=== PATIENT | male | born 1965 | race Caucasian/White ===

== ENCOUNTER 2022-02-14 01:14 | Outpatient (CLI) | payer BC, SELFPAY ==
[2022-02-14] MEDS: Methacholine 100 MG VIAL IH (17:29)
[2022-02-14] MEDS: Albuterol HFA 18 GM 200 PUFF INH IH (17:29)
[2022-02-14] MEDS: Inhaler, Assist Device 1 EACH MC (17:29)
--- NOTE | 2022-02-18 12:28 | W.PFT ---
Date of service: 02/14/22 Time of Service: 15:07 Pulmonary Function Test Result Requesting Provider Rubi Indications: Chronic cough Interpretation Spirometry: There was a 17% decrease in FEV1% with administration of 16mg/mL methacholine. Note: Negative methacholine challenge test Clinical Correlation therefore is recommended.
== END 2022-02-14 01:15 | disposition home or self-care (01) ==
LOC: RT 01:15
PROVIDERS: PCP Physician Assistant Medical; Visit Provider Student in an Organized Health Care Education/Training Program
DX: R05.3 Chronic cough (principal)
CPT/HCPCS: 94060; 94070; J7674

== ENCOUNTER 2022-02-17 08:04 | Day surgery (SDC) | payer BC, SELFPAY ==
[2022-02-17 08:07] VITALS: BP 132/86; PULSE 74; RESP 18; TEMP 36.5; O2SAT 98
[2022-02-17] MEDS: Tropicam./Phenyleph. (1/2.5%) 5 ML BTL OD ×3 (08:23→08:34)
[2022-02-17 08:30] VITALS: BP 132/86; PULSE 74; RESP 18; TEMP 36.5; O2SAT 98
--- NOTE | 2022-02-17 08:43 | W.ANESPRE ---
General Info Date of Service Date Performed: 02/17/22 Height: 6 ft Weight: 93.1 kg Body Mass Index (BMI): 27.8 Surgical Procedure: Operation Date: 02/17/22 10:40 Proposed Procedure Side Surgeon p Cataract Extraction with IOL Implant Right Keshav Fuller MD Meds Allergies and Home Medications Allergies Allergy/AdvReac Type Severity Reaction Status Date / Time No Known Allergies Allergy Verified 02/17/22 08:18 Home Medication Medication Instructions Recorded acetaminophen 500 mg tablet 500 mg PO Q4H PRN 10/22/21 prednisone 20 mg tablet 40 mg PO DAILY #14 tabs 02/11/22 Current Visit Medications: Current Medications Generic Name Dose Route Start Last Admin Trade Name Freq PRN Reason Stop Dose Admin Acetaminophen 1,000 mg 02/17/22 06:00 Acetaminophen 500 Mg Tab PO Q4H PRN PRN Miscellaneous Medication 0 ml 02/17/22 06:00 Prednisolone 1%, Moxifloxacin 0.5%, Nepafenac 0.1% 5ml Btl OD DIRECTED [facility] Miscellaneous Medication 0 ml 02/17/22 06:00 02/17/22 08:34 Tropicam./Phenyleph. 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 Neck pain M54.2 Prepatellar bursitis M70.40 Palpitations R00.2 Snoring R06.83 Chronic cough R05.3 Chest pain R07.9 Elevated blood pressure reading without diagnosis of hypertension R03.0 History of appendectomy Z90.49 Nuclear sclerotic cataract of right eye H25.11 Medical History Medical History Anxiety Aortic root dilatation Surgical History Surgical History H/O atrial septal defect repair History of appendectomy Tobacco Smoking/Tobacco Use Status: Never Second hand exposure: Yes (Rarely) Alcohol Alcohol Intake: current Alcohol intake frequency: a few times a week Substance Use Substance use: Never Vital Signs and Lab Results Vital Signs Most Recent Vital Signs in EMR: Most Recent Vital Signs Temp Pulse Resp BP Pulse Ox 36.5 C 74 18 132/86 98 02/17/22 08:30 02/17/22 08:30 02/17/22 08:30 02/17/22 08:30 02/17/22 08:30 Lab Results Blood Type / Crossmatch: No Data to Display Complete Blood Count: No Data to Display Complete Metabolic Panel: No Data to Display Liver Function Panel: No Data to Display Coagulation Panel: No Data to Display Cardiac Panel: No Data to Display Arterial Blood Gas: No Data to Display Venous Blood Gas: No Data to Display Pancreas Panel: No Data to Display Thyroid Panel: No Data to Display Infectious Disease: No Data to Display Blood Cultures: No Data to Display Toxicology Panel: No Data to Display Imaging and Studies Imaging and Studies Study information below may be from another EMR and interpreted by another provider. Please see original notes in EMR for more complete details. Pulmonary Function Summary: Recent pft normal Anesthesia Assessment and Plan Anesthesia History Personal History: Delayed Emergence Family History: No Family History of Anesthesia Complications Exercise Tolerance Exercise Tolerance: Metabolic Equivalents>4 Pertinent Negatives Pertinent Negatives: No Symptoms of GERD Cardiac & Pulmonary Exam Cardiac Exam: Normal S1/S2 Heart Sounds Pulmonary Exam: Clear Bilateral Breath Sounds Implantable Cardiac Device Does patient have a Pacemaker or an ICD?: No Airway Exam Known Difficult Airway: No Mallampati Class: 3 Mouth Opening: Normal (> 3cm) Thyromental Distance: Greater than 3 cm Neck Range of Motion: Full ROM Neck Circumference: Normal Teeth Condition: Normal Dentition ASA Classification ASA Score: ASA 2 Emergency Case?: No NPO Status NPO Status: NPO Clears >2 hours, Solids >8 hours Anesthesia Plan Resuscitation Status: Full Code Anesthesia Technique: MAC Anesthesia Airway Planned: Natural Airway Monitors Used: Standard Monitors Preoperative Comments:: Jesika lama
[2022-02-17 08:45] VITALS: BMI 27.8
[2022-02-17] MEDS: Balanced Salt Soln.-PLUS 500 ML BAG (10:11)
[2022-02-17] MEDS: Tetracaine 0.5% 4 ML BTL OD (10:11)
[2022-02-17] MEDS: Duovisc Viscoelastic System EACH 1 EACH (10:14)
[2022-02-17] MEDS: Trypan Blue 0.06% 0.5 ML SYR (10:14)
[2022-02-17] MEDS: Triamcinolone 40 MG/ML VIAL (10:14)
[2022-02-17] MEDS: Povidone-Iodine Ophth 30 ML BTL (10:15)
[2022-02-17] MEDS: Lidocaine 2% Jelly 6 ML SYR (10:15)
[2022-02-17 10:53] VITALS: BP 117/90; PULSE 71; RESP 18; TEMP 36.8; O2SAT 96
--- NOTE | 2022-02-17 10:54 | W.PM.DSUDISC ---
Discharge Plan Disposition Patient Disposition: HOME Condition: Good Discharge Details Attending Provider: Keshav Fuller Primary Care Provider: Aj Wallace Home Meds and New Rx's Prescriptions: No Action prednisone 20 mg tablet 40 mg PO DAILY Qty: 14 0RF Rx Instructions: For cough after cataract surgery acetaminophen 500 mg tablet 500 mg PO Q4H PRN Discharge Instructions Stand Alone Forms: Post-op Topical Cataract, Amanda Fuller (DSU) Discharge Orders Discharge Orders: Discharge Order (Routine); Ordered 02/17/22 Ordered By: Keshav Fuller DS: Diagnosis Discharge Diagnosis (1) History of vitrectomy: Status: Chronic (2) Nuclear sclerotic cataract of right eye: Status: Chronic (3) History of detached retina repair: Status: Chronic
--- NOTE | 2022-02-17 10:57 | W.PM.OP ---
Date of service: 02/17/22 Time of Service: 10:57 Operative Note Operative Note DATE OF PROCEDURE: 02/17/22 PRE-OP DIAGNOSIS: Nuclear cataract, right eye History of retinal detachment, right eye, status post pars plana vitrectomy and scleral buckling procedure POST-OP DIAGNOSIS: same PROCEDURE: Cataract extraction using phacoemulsification with intraocular lens implantation, right eye, using capsular staining with Vision Blue Implantation of capsular tension ring SURGEON: Keshav Fuller ANESTHESIA TYPE: Local By Surgeon and MAC Refer to Anesthesia Record PATHOLOGY: none sent COMPLICATIONS: None Patient was transported to: same day Patient's condition: stable Implants: Travis and Travis / [employer] Tecnis [id number] Morcher Type 15B capsular tension ring Indications: Progressive visual loss due to cataract, right eye Procedure Description: CATARACT SURGERY OPERATIVE REPORT PREOPERATIVE DIAGNOSIS: 1. Nuclear cataract, right eye 2. Poor red reflex secondary to #1 3. History of retinal detachment, right eye status post pars plana vitrectomy and scleral buckling procedure 4. High myopia POSTOPERATIVE DIAGNOSIS: Same OPERATION: 1. Cataract extraction using phacoemulsification with posterior chamber intraocular lens implant, right eye. 2. Capsular staining with Vision Blue 3. Implantation of Morcher Type 15B capsular tension ring IOL: IOL Stained Glass Window Designer/Model: Travis & Travis / TRUONG [id number] IOL Power: + 14.0 diopters IOL Serial Number: [id number] Optic Diameter: 6.0mm Haptic/Overall Diameter: 13.0mm PHACO INFO: Florian Adapta Medicalurion Vision System with OZil and Active Fluidics Cumulative Dispersed Energy (CDE): 6.77 seconds SURGEON: Keshav Fuller MD, VIVIANA ANESTHESIA: Monitored Anesthesia Care (MAC), with local sub-tenon's anesthetic infiltration COMPLICATIONS: None SPECIMENS: None INDICATIONS FOR PROCEDURE: The patient is a 56-year-old gentleman with history of high myopia who suffered a retinal detachment in the right eye, undergoing subsequent retinal detachment repair with pars plana vitrectomy and scleral buckling procedure. He has now developed asymptomatic nuclear cataract in the right eye. The option of cataract surgery was offered to the patient and he wished to proceed, understanding that postoperative visual acuity will be limited by the presence of his pre-existing retinopathy PROCEDURE: The correct surgical eye was identified and marked as the right eye and the pupil was dilated in the preoperative area using mydriatics and cycloplegics. The dilated pupil size was 6.5 mm. Oral sedation was administered in the form of an Imprimis MKO Melt (midazolam 3mg/ketamine 25mg/ondansetron 2mg). The patient was brought to the operating room where cardiopulmonary monitoring was instituted and surgical time-out was performed, confirming the correct operative eye and IOL power. Topical anesthesia was administered and ophthalmic povidone-iodine 5% was instilled into the conjunctival fornices. Lidocaine gel was applied to the cornea and the everardo-ocular area was prepped with Betadine 10% solution and draped in the usual sterile fashion for intraocular surgery, including an aperture drape. A Tegaderm transparent film dressing was cut in half and used to cover the lashes and lid margins. Care was taken to sequester the lashes and lid margins under the Tegaderm dressing. A lid speculum was placed between the lids of the operative eye and the Florian LuxOR Revalia operating microscope was maneuvered into position. Sharita scissors were then used to make a conjunctival buttonhole approximately 6mm posterior to the limbus in the inferonasal quadrant. Blunt dissection was carried out to expose bare sclera, and a blunt-tipped sub-tenon?s anesthesia cannula was introduced and passed posteriorly along the globe where a 50-50 mixture of 0.5% ropivacaine and 1% non-preserved plain lidocaine was injected into posterior sub-Tenon?s space. There was some In getting over the scleral band. A sideport knife was used to make a paracentesis port inferotemporally. Intraocular phenylephrine/lidocaine was injected into the anterior chamber. Air was injected into the anterior chamber, followed by Vision Blue, which was painted over the anterior capsule and then irrigated out with BSS. The anterior chamber was filled with viscoelastic. A keratome knife was used to create a 2-plane near clear corneal tunnel extending approximately 2 mm into clear cornea superior temporally.. A flap was raised on the anterior capsule and capsulorhexis forceps were used to complete a continuous curvilinear capsulorhexis of 5.5 mm. Capsule was noted to be extremely thin with loose zonules. The equator of the cataract was visible from the 7:00 to the 9 o'clock position. Balanced salt solution was then used to perform cortical cleaving hydrodissection and nuclear hydrodelineation until the lens could be freely rotated within the capsular bag. The lens nucleus was then disassembled and removed within the capsular bag and iris plane using phacoemulsification. Residual cortical material was removed using the I/A handpiece. The posterior capsule was carefully polished to remove as much residual lens epithelial cells as safely possible. The capsular bag was then inflated and the anterior chamber deepened with viscoelastic. A Morcher Type 15B capsular tensioning was then inserted into the capsular bag without difficulty. The lens implant described above was inserted into the capsular bag using the [employer] Injector. A Kuglen hook was used to dial the IOL into position. Residual viscoelastic was then removed first from posterior to the IOL, then from the anterior chamber using the I/A handpiece. The lens implant was noted to center nicely within the capsular bag. The incisions were stromally hydrated, and the anterior chamber was reformed using BSS. Miostat was then injected into the anterior chamber and the pupil was noted to come down around. Then 0.5cc of moxifloxacin 1.0mg/ml were injected into the capsular bag and anterior chamber. The incisions were checked with a Weck spear and found to be secure. Next, Kenalog 20 mg in 0.5 cc were injected into posterior sub-tenon's space using the sub-tenon's anesthesia injection cannula. Several drops of ophthalmic povidone-iodine 5% were then applied to the eye followed by two drops of Imprimis combination prednisolone/moxifloxacin/nepafenac solution. The drapes were removed and a clear plastic protective eye shield was placed over the eye. The patient was then returned to Same Day Surgery in stable condition.
[2022-02-17 11:17] VITALS: BP 117/90; PULSE 71; RESP 18; TEMP 36.8; O2SAT 96
--- NOTE | 2022-02-17 11:45 | W.ANESPOSTOP ---
Postoperative Evaluation Date, Time and Location Date Performed: 02/17/22 Time Performed: 11:00 Patient Location: Day Surgery Unit Vital Signs Most Recent Imported Vital Signs: Most Recent Vital Signs Temp Pulse Resp BP Pulse Ox 36.8 C 71 18 117/90 96 02/17/22 11:17 02/17/22 11:17 02/17/22 11:17 02/17/22 11:17 02/17/22 11:17 Pain Score Most Recent Pain Score: Most Recent Pain Score Pain Level 0 02/17/22 11:17 Assessment Mental Status: Awake (Alert & Oriented to Patient Baseline) Airway and Respiratory Function: Patent airway with normal (patient baseline) respiratory exam Cardiovascular Function: Hemodynamically Stable Hydration Status: Adequately Hydrated Nausea & Vomiting: No Nausea or Vomiting Pain: Pt. Denies Any Pain Peripheral Nerve Block: Patient did not receive a nerve block
== END 2022-02-17 11:30 | disposition home or self-care (01) ==
PROVIDERS: PCP Physician Assistant Medical; Visit Provider Ophthalmology
PROC: (CPT 66982; principal; 2022-02-17 10:30)
DX: H25.11 Age-related nuclear cataract, right eye (principal); Z98.890 Other specified postprocedural states; Z86.69 Personal history of other diseases of the nervous system and sense organs; H26.8 Other specified cataract
CPT/HCPCS: 66982; V2632

== ENCOUNTER 2022-03-03 08:49 | Day surgery (SDC) | payer BC, SELFPAY ==
[2022-03-03 09:00] VITALS: BP 128/85; PULSE 73; RESP 18; TEMP 36.4; O2SAT 97
[2022-03-03] MEDS: Tropicam./Phenyleph. (1/2.5%) 5 ML BTL OS ×3 (09:20→09:32)
--- NOTE | 2022-03-03 10:14 | W.ANESPRE ---
General Info Date of Service Date Performed: 03/03/22 Height: 6 ft Weight: 93.1 kg Body Mass Index (BMI): 27.8 Surgical Procedure: Operation Date: 03/03/22 11:40 Proposed Procedure Side Surgeon p Cataract Extraction with IOL Implant Left Keshav Fuller MD Meds Allergies and Home Medications Allergies Allergy/AdvReac Type Severity Reaction Status Date / Time No Known Allergies Allergy Verified 03/03/22 09:11 Home Medication Medication Instructions Recorded acetaminophen 500 mg tablet 500 mg PO Q4H PRN 10/22/21 prednisone 20 mg tablet 40 mg PO DAILY #14 tabs 02/11/22 Current Visit Medications: Current Medications Generic Name Dose Route Start Last Admin Trade Name Freq PRN Reason Stop Dose Admin Acetaminophen 1,000 mg 03/03/22 06:00 Acetaminophen 500 Mg Tab PO Q4H PRN PRN Miscellaneous Medication 0 ml 03/03/22 06:00 Prednisolone 1%, Moxifloxacin 0.5%, Nepafenac 0.1% 5ml Btl OS DIRECTED ROSALIE Miscellaneous Medication 0 ml 03/03/22 06:00 03/03/22 09:32 Tropicam./Phenyleph. 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 Neck pain M54.2 Prepatellar bursitis M70.40 Palpitations R00.2 Snoring R06.83 Chronic cough R05.3 Chest pain R07.9 Elevated blood pressure reading without diagnosis of hypertension R03.0 History of appendectomy Z90.49 Nuclear sclerotic cataract of right eye H25.11 History of vitrectomy Z98.890 History of detached retina repair Z98.890, Z86.69 Nuclear sclerotic cataract of left eye H25.12 Medical History Medical History Anxiety Aortic root dilatation Surgical History Surgical History (Updated 03/03/22 @ 09:11 by Caroline Oro) H/O atrial septal defect repair History of appendectomy History of cataract surgery Tobacco Smoking/Tobacco Use Status: Never Second hand exposure: Yes (Rarely) Alcohol Alcohol Intake: current Alcohol intake frequency: a few times a week Substance Use Substance use: Never Substance use type: does not use Vital Signs and Lab Results Vital Signs Most Recent Vital Signs in EMR: Most Recent Vital Signs Temp Pulse Resp BP Pulse Ox 36.4 C L 73 18 128/85 97 03/03/22 09:00 03/03/22 09:00 03/03/22 09:00 03/03/22 09:00 03/03/22 09:00 Lab Results Blood Type / Crossmatch: No Data to Display Complete Blood Count: No Data to Display Complete Metabolic Panel: No Data to Display Liver Function Panel: No Data to Display Coagulation Panel: No Data to Display Cardiac Panel: No Data to Display Arterial Blood Gas: No Data to Display Venous Blood Gas: No Data to Display Pancreas Panel: No Data to Display Thyroid Panel: No Data to Display Infectious Disease: No Data to Display Blood Cultures: No Data to Display Toxicology Panel: No Data to Display Imaging and Studies Imaging and Studies Study information below may be from another EMR and interpreted by another provider. Please see original notes in EMR for more complete details. Pulmonary Function Summary: Date of service: 02/14/22 Time of Service: 15:07 Pulmonary Function Test Result Requesting Provider Rubi Indications: Chronic cough Interpretation Spirometry: There was a 17% decrease in FEV1% with administration of 16mg/mL methacholine. Note: Negative methacholine challenge test Clinical Correlation therefore is recommended. Anesthesia Assessment and Plan Anesthesia History Personal History: No History of Anesthesia Complications Family History: No Family History of Anesthesia Complications Exercise Tolerance Exercise Tolerance: Metabolic Equivalents>4 Cardiac & Pulmonary Exam Cardiac Exam: Normal S1/S2 Heart Sounds Pulmonary Exam: Clear Bilateral Breath Sounds Implantable Cardiac Device Does patient have a Pacemaker or an ICD?: No Airway Exam Known Difficult Airway: No Mallampati Class: 3 Mouth Opening: Normal (> 3cm) Thyromental Distance: Greater than 3 cm Neck Range of Motion: Full ROM Neck Circumference: Normal Teeth Condition: Normal Dentition ASA Classification ASA Score: ASA 2 Emergency Case?: No NPO Status NPO Status: NPO Clears >2 hours, Solids >8 hours Anesthesia Plan Resuscitation Status: Full Code Anesthesia Technique: MAC Anesthesia Airway Planned: Natural Airway Monitors Used: Standard Monitors
[2022-03-03 10:15] VITALS: BMI 27.8
[2022-03-03] MEDS: Tetracaine 0.5% 4 ML BTL OS (10:56)
[2022-03-03] MEDS: Balanced Salt Soln.-PLUS 500 ML BAG (10:57)
[2022-03-03] MEDS: Povidone-Iodine Ophth 30 ML BTL (11:01)
[2022-03-03] MEDS: Lidocaine 2% Jelly 6 ML SYR (11:03)
[2022-03-03 11:20] VITALS: BP 112/94; PULSE 67; RESP 18; TEMP 36.3; O2SAT 97
--- NOTE | 2022-03-03 11:20 | W.PM.DSUDISC ---
Discharge Plan Disposition Patient Disposition: HOME Condition: Good Discharge Details Attending Provider: Keshav Fuller Primary Care Provider: Aj Wallace Home Meds and New Rx's Prescriptions: No Action prednisone 20 mg tablet 40 mg PO DAILY Qty: 14 0RF Rx Instructions: For cough after cataract surgery acetaminophen 500 mg tablet 500 mg PO Q4H PRN Discharge Instructions Stand Alone Forms: Post-op Topical Cataract, Amanda Fuller (DSU) Discharge Orders Discharge Orders: Discharge Order (Routine); Ordered 03/03/22 Ordered By: Keshva Fuller DS: Diagnosis Discharge Diagnosis (1) Nuclear sclerotic cataract of left eye: Status: Resolved
--- NOTE | 2022-03-03 11:20 | W.PM.OP ---
Date of service: 03/03/22 Time of Service: 11:20 Operative Note Operative Note DATE OF PROCEDURE: 03/03/22 PRE-OP DIAGNOSIS: Nuclear cataract, left eye POST-OP DIAGNOSIS: same PROCEDURE: Cataract extraction using phacoemulsification with intraocular lens implant, left eye SURGEON: Keshav Fuller ANESTHESIA TYPE: Local By Surgeon and MAC Refer to Anesthesia Record PATHOLOGY: none sent COMPLICATIONS: None Patient was transported to: same day Patient's condition: stable Implants: Travis and Travis / [employer] Opt[employer] Tecnis [id number] Indications: Progressive decreased vision due to cataract, left eye Procedure Description: CATARACT SURGERY OPERATIVE REPORT PREOPERATIVE DIAGNOSIS: 1. Nuclear cataract, left eye POSTOPERATIVE DIAGNOSIS: Same OPERATION: 1. Cataract extraction using phacoemulsification with posterior chamber intraocular lens implant, left eye. IOL: IOL Corporate Wellness Coordinator/Model: Travis & Travis / TRUONG Tecnis [id number] IOL Power: + 15.0 diopters IOL Serial Number: [id number] Optic Diameter: 6.0 mm Haptic/Overall Diameter: 13.0 mm PHACO INFO: Florian[employer]urion Vision System with OZil and Active Fluidics Cumulative Dispersed Energy (CDE): 4.37 seconds SURGEON: Keshav Fuller MD, VIVIANA ANESTHESIA: Monitored A [facility] (MAC), with local sub-tenon's anesthetic infiltration COMPLICATIONS: None SPECIMENS: None INDICATIONS FOR PROCEDURE: The patient is a 56-year-old gentleman with history of high myopia who has suffered a retinal detachment in the right eye with subsequent retinal detachment repair with vitrectomy and scleral buckling procedure. He has also undergone cataract extraction following that retina surgery. He now has significant anisometropia between the 2 eyes which is intolerable. The option of cataract surgery in the left eye was offered to the patient and he wished to proceed. PROCEDURE: The correct surgical eye was identified and marked as the left eye and the pupil was dilated in the preoperative area using mydriatics and cycloplegics. The dilated pupil size was 8.0 mm. Oral sedation was administered in the form of an Imprimis MKO Melt (midazolam 3mg/ketamine 25mg/ondansetron 2mg). The patient was brought to the operating room where cardiopulmonary monitoring was instituted and surgical time-out was performed, confirming the correct operative eye and IOL power. Topical anesthesia was administered and ophthalmic povidone-iodine 5% was instilled into the conjunctival fornices. Lidocaine gel was applied to the cornea and the everardo-ocular area was prepped with Betadine 10% solution and draped in the usual sterile fashion for intraocular surgery, including an aperture drape. A Tegaderm transparent film dressing was cut in half and used to cover the lashes and lid margins. Care was taken to sequester the lashes and lid margins under the Tegaderm dressing. A lid speculum was placed between the lids of the operative eye and the Florian Lux[employer] Revalia operating microscope was maneuvered into position. Sharita scissors were then used to make a conjunctival buttonhole approximately 6mm posterior to the limbus in the inferonasal quadrant. Blunt dissection was carried out to expose bare sclera, and a blunt-tipped sub-tenon?s anesthesia cannula was introduced and passed posteriorly along the globe where non-preserved plain lidocaine was injected into posterior sub-Tenon?s space. A sideport knife was used to make a paracentesis port superiorly/superiortemporally. Intraocular phenylephrine/lidocaine was injected int the anterior chamber.. The anterior chamber was filled with viscoelastic. A keratome knife was used to construct a 2-plane near-clear corneal tunnel extending 2.0mm into clear cornea temporally. A flap was raised on the anterior capsule and capsulorhexis forceps were used to complete a continuous curvilinear capsulorhexis of 5.0 mm. The eye was noted to be quite soft with a very deep anterior chamber. Maintaining the eye and primary position was challenging due to forcible infraduction. Balanced salt solution was then used to perform cortical cleaving hydrodissection and nuclear hydrodelineation until the lens could be freely rotated within the capsular bag. The lens nucleus was then disassembled and removed within the capsular bag and iris plane using phacoemulsification. Residual cortical material was removed using the 45-degree angled silicone I/A tip with 0.3mm port. The posterior capsule was carefully polished to remove as much residual lens epithelial cells as safely possible. The capsular bag was then inflated and the anterior chamber deepened with viscoelastic. The lens implant described above was inserted into the capsular bag using the TRUONG [place] Injector. A Kuglen hook was used to dial the IOL into position. Residual viscoelastic was then removed first from posterior to the IOL, then from the anterior chamber using the I/A handpiece. The lens implant was noted to center nicely within the capsular bag. The incisions were stromally hydrated, and the anterior chamber was reformed using BSS. Then 0.5cc of moxifloxacin 1.0mg/ml were injected into the capsular bag and anterior chamber. The incisions were checked with a Weck spear and found to be secure. Several drops of ophthalmic povidone-iodine 5% were then applied to the eye followed by two drops of Imprimis combination prednisolone/moxifloxacin/nepafenac solution. The drapes were removed and a clear plastic protective eye shield was placed over the eye. The patient was then returned to Same Day Surgery in stable condition.
[2022-03-03 11:43] VITALS: BP 112/85; PULSE 76; RESP 20; TEMP 36.8; O2SAT 97
--- NOTE | 2022-03-03 11:52 | W.ANESPOSTOP ---
Postoperative Evaluation Date, Time and Location Date Performed: 03/03/22 Time Performed: 11:25 Patient Location: Day [facility] Unit Vital Signs Most Recent Imported Vital Signs: Most Recent Vital Signs Temp Pulse Resp BP Pulse Ox 36.3 C L 67 18 112/94 H 97 03/03/22 11:20 03/03/22 11:20 03/03/22 11:20 03/03/22 11:20 03/03/22 11:20 Pain Score Most Recent Pain Score: Most Recent Pain Score Pain Level 0 03/03/22 11:20 Assessment Mental Status: Awake (Alert & Oriented to Patient Baseline) Airway and Respiratory Function: Patent airway with normal (patient baseline) respiratory exam Cardiovascular Function: Hemodynamically Stable Hydration Status: Adequately Hydrated Nausea & Vomiting: No Nausea or Vomiting Pain: Pt. Denies Any Pain Peripheral Nerve Block: Patient did not receive a nerve block
== END 2022-03-03 11:50 | disposition home or self-care (01) ==
LOC: SUR 08:50
PROVIDERS: PCP Physician Assistant Medical; Visit Provider Ophthalmology
PROC: (CPT 66984; principal; 2022-03-03 11:30)
DX: H25.12 Age-related nuclear cataract, left eye (principal)
CPT/HCPCS: 66984; V2632

== ENCOUNTER 2022-07-14 09:02 | Outpatient (CLI) | payer BC, SELFPAY ==
[2022-07-14 09:21] LABS: Source Nasal/Nares
[2022-07-14 11:02] LABS: COVID-19 PCR Negative (Negative)
== END 2022-07-14 09:03 | disposition home or self-care (01) ==
LOC: LBO 09:03
PROVIDERS: PCP Physician Assistant Medical; Visit Provider Physician Assistant Surgical
DX: Z11.52 Encounter for screening for COVID-19 (principal)
CPT/HCPCS: 87635

== ENCOUNTER 2022-07-15 06:09 | Day surgery (SDC) | payer BC, SELFPAY ==
[2022-07-15] VITALS (8 sets, daily range): BP systolic 82–137; BP diastolic 56–94; PULSE 69–80; RESP 13–25; TEMP 36.3–36.7; O2SAT 92–97; BMI 28.3
--- NOTE | 2022-07-15 06:47 | HPE_ITS ---
Assessment and Plan Assessment and plan (1) Chronic cough: Status: Acute Assessment and plan: 56 yo with a chronic cough in whom an etiology has not been discovered as of yet with non invasive testing. He presents today for flexible bronchoscopy with BAL to rule out indolent/latent infection, tracheobronchomalacia or other potential anatomical contributing cause for the cough. Patient is stable and safe to proceed with procedure. History of Present Illness Narrative: Patient presents today for diagnostic flexible bronchoscopy to help elucidate cause of chronic cough. 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 His is feeling well today, had a rough day with coughing yesterday, but is otherwise doing well. 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 (Acute) Neck pain (Acute) Prepatellar bursitis (Acute) Palpitations (Acute) Snoring (Acute) Chronic cough (Acute) Chest pain (Acute) Elevated blood pressure reading without diagnosis of hypertension (Acute) History of appendectomy (Chronic) Nuclear sclerotic cataract of right eye (Chronic) History of vitrectomy (Chronic) History of detached retina repair (Chronic) Encounter for screening for COVID-19 (Acute) Medical History Anxiety Aortic root dilatation Salivary gland calculi gland excised Surgical History (Updated 07/15/22 @ 06:38 by Priscilla Ludwig) H/O atrial septal defect repair 1977 History of appendectomy History of cataract surgery History of surgery on wrist bilateral ligament tears repaired Family History (Updated 02/11/22 @ 08:48 by Dacia De La Rosa) Brother Diabetes Mother Diabetes FH: CVA (cerebrovascular accident) Breast cancer Father Breast cancer Social History (Updated 02/11/22 @ 08:50 by Dacia De La Rosa) Smoking/Tobacco Use Status: Never Second Hand Exposure: Yes (Rarely) Smoking risk assessment performed?: Yes Alcohol Intake: current Alcohol Intake frequency: a few times a week Alcohol type: beer Drug use: Never Substance use type: does not use Pets and animals: Yes Do you feel safe at home: Yes Additional Social history: lives alone Meds Allergies and Home Medications Allergies Allergy/AdvReac Type Severity Reaction Status Date / Time No Known Allergies Allergy Verified 07/15/22 06:38 Home Medications Medication Instructions Recorded Confirmed Type acetaminophen 500 mg tablet 500 mg PO Q4H PRN 10/22/21 07/15/22 History ibuprofen 200 mg tablet 200 mg PO Q6H PRN 06/13/22 07/15/22 History naproxen 250 mg tablet 250 mg PO BID PRN 06/13/22 07/15/22 History Exam Narrative Exam Narrative: Gen: NAD, normal respiratory effort, well-nourished HENT: PERRL Chest: No respiratory distress, normal appearance of chest Abdomen: Non-distended Extremities: No clubbing, edema, cyanosis, rashes Neuro: AAOx3 , non focal Psych: cooperative, appropriate mental affect
--- NOTE | 2022-07-15 07:03 | W.ANESPRE ---
General Info Date of Service Date Performed: 07/15/22 Height: 6 ft Weight: 94.8 kg Body Mass Index (BMI): 28.3 Surgical Procedure: Operation Date: 07/15/22 07:40 Proposed Procedure Side Surgeon p Bronchoscopy w/BAL & possible Endobronchial Biopsy Jolly Venegas MD Meds Allergies and Home Medications Allergies Allergy/AdvReac Type Severity Reaction Status Date / Time No Known Allergies Allergy Verified 07/15/22 06:38 Home Medication Medication Instructions Recorded acetaminophen 500 mg tablet 500 mg PO Q4H PRN 10/22/21 ibuprofen 200 mg tablet 200 mg PO Q6H PRN 06/13/22 naproxen 250 mg tablet 250 mg PO BID PRN 06/13/22 Current Visit Medications: Current Medications Generic Name Dose Route Start Last Admin Trade Name Freq PRN Reason Stop Dose Admin Ringer's Solution 1,000 mls @ 30 mls/hr 07/15/22 06:00 IV 08/13/22 23:59 INFUSION ROSALIE IV Miscellaneous Supplies 1 each 07/15/22 06:00 Iv Access IV 08/13/22 23:59 DIRECTED ROSALIE Sodium Chloride 0 ml 07/15/22 06:00 Normal Saline Flush 10 Ml Syr IV 08/13/22 23:59 PRN PRN Sodium Chloride 0 ml 07/15/22 06:00 Normal Saline 10 Ml Vial IJ 08/13/22 23:59 DIRECTED PRN Sterile Water 0 ml 07/15/22 06:00 Water,Injection,Sterile 10 Ml Vial IJ 08/13/22 23:59 DIRECTED PRN PFSH Active Problems Active Problems: Problem Status Onset Code Onychomycosis due to dermatophyte B35.1 Pure hyperglyceridemia E78.1 Insomnia G47.00 Carpal tunnel syndrome G56.00 Tinnitus H93.19 Rheumatic tricuspid valve regurgitation I07.1 Essential hypertension I10 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 Neck pain M54.2 Prepatellar bursitis M70.40 Palpitations R00.2 Snoring R06.83 Chronic cough R05.3 Chest pain R07.9 Elevated blood pressure reading without diagnosis of hypertension R03.0 History of appendectomy Z90.49 Nuclear sclerotic cataract of right eye H25.11 History of vitrectomy Z98.890 History of detached retina repair Z98.890, Z86.69 Nuclear sclerotic cataract of left eye H25.12 Encounter for screening for COVID-19 Z11.52 Medical History Medical History Anxiety Aortic root dilatation Salivary gland calculi gland excised Surgical History Surgical History (Updated 07/15/22 @ 06:38 by Priscilla Ludwig) H/O atrial septal defect repair 1978 History of appendectomy History of cataract surgery History of surgery on wrist bilateral ligament tears repaired Tobacco Smoking/Tobacco Use Status: Never Second hand exposure: Yes (Rarely) Alcohol Alcohol Intake: current Alcohol intake frequency: a few times a week Alcohol type: beer Substance Use Substance use: Never Substance use type: does not use Vital Signs and Lab Results Vital Signs Most Recent Vital Signs in EMR: Most Recent Vital Signs Temp Pulse Resp BP Pulse Ox 36.6 C 79 16 137/94 H 97 07/15/22 06:39 07/15/22 06:39 07/15/22 06:39 07/15/22 06:39 07/15/22 06:39 Lab Results Blood Type / Crossmatch: No Data to Display Complete Blood Count: No Data to Display Complete Metabolic Panel: No Data to Display Liver Function Panel: No Data to Display Coagulation Panel: No Data to Display Cardiac Panel: No Data to Display Arterial Blood Gas: No Data to Display Venous Blood Gas: No Data to Display Pancreas Panel: No Data to Display Thyroid Panel: No Data to Display Infectious Disease: Coronavirus (COVID-19)(PCR) Negative (Negative) 07/14/22 09:00 Coronavirus 2019 Source Nasal/Nares 07/14/22 09:00 Blood Cultures: No Data to Display Toxicology Panel: No Data to Display Imaging and Studies Imaging and Studies Study information below may be from another EMR and interpreted by another provider. Please see original notes in EMR for more complete details. Pulmonary Function Summary: Date of service: 02/14/22 Time of Service: 15:07 Pulmonary Function Test Result Requesting Provider Rubi Indications: Chronic cough Interpretation Spirometry: There was a 17% decrease in FEV1% with administration of 16mg/mL methacholine. Note: Negative methacholine challenge test Clinical Correlation therefore is recommended. Anesthesia Assessment and Plan Anesthesia History Personal History: No History of Anesthesia Complications Family History: No Family History of Anesthesia Complications Exercise Tolerance Exercise Tolerance: Metabolic Equivalents>4 Pertinent Negatives Pertinent Negatives: No Symptoms of GERD Cardiac & Pulmonary Exam Cardiac Exam: Normal S1/S2 Heart Sounds Pulmonary Exam: Clear Bilateral Breath Sounds Implantable Cardiac Device Does patient have a Pacemaker or an ICD?: No Airway Exam Known Difficult Airway: No Mallampati Class: 3 Mouth Opening: Normal (> 3cm) Thyromental Distance: Greater than 3 cm Neck Range of Motion: Full ROM Neck Circumference: Normal Teeth Condition: Normal Dentition ASA Classification ASA Score: ASA 3 Emergency Case?: No NPO Status NPO Status: NPO Clears >2 hours, Solids >8 hours Anesthesia Plan Resuscitation Status: Full Code Anesthesia Technique: General Anesthesia Airway Planned: Endotracheal Tube Monitors Used: Standard Monitors
[2022-07-15] MEDS: Lactated Ringers 1,000 ML 30 ML IV (07:10)
[2022-07-15] MEDS: Lidocaine 1% Pres-Free 30 ML VIAL (07:48)
--- NOTE | 2022-07-15 07:50 | PAPNONF_PTH ---
PATIENT: Donny Lombardi LOC: [facility] U#:[id number] AGE/SX: 56/M ROOM: RE07/15/[address]: Jolly Venegas MD : 1965 BED: DIS: 07/15/2022 SPEC #: [id number] RECD: 07/15/22 12:30 STATUS: [place] REQ #: [id number] EMMETT: 07/15/22 07:[address]: Jolly Venegas DEPT: [facility] Cytology RECD BY: Meagan Eckert ENTERED: 07/15/22 12:31 SP TYPE: ZEINA [facility] DR: Aj Wallace Tissues: 1 - BODY FLUID CYTO(NOT S/U/N/EM)[facility] Procedures: BODY FLUID CYTO(NOT SPU/UR/NIP/ENDOM)[facility] Comments: [id number] (TV= 10 ml, SENT FRESH) (REFRIGERATED)
[2022-07-15] MEDS: ePHEDrine 25 MG/5 ML Syringe IVP ×2 (08:37→09:00)
--- NOTE | 2022-07-15 08:53 | W.PM.OP ---
Date of service: 07/15/22 Time of Service: 07:30 Operative Note Operative Note PRE-OP DIAGNOSIS: Chronic cough Refer to Anesthesia Record Procedure Description: Bronchoscopy Indication:Chronic cough Procedure performed: Flexible bronchoscopy with BAL and bronchial washings Sedation plan: General anesthesia Informed consent was obtained after the risks and benefits or the procedure were discussed. The patient was sedated by anesthesia (see seperate record). I intubated the patient using a Glydescope 3 with an 8.0 ETT. Intubation was successful on first attempt. A proper and complete OR compliant time out was performed. The therapeutic 6.2mm Olympus bronchoscope was inserted through the endotracheal tube. The bronchoscope was inserted into the airways, where 3cc in total of 1% topical lidocaine was used the anesthetize the airways. The trachea was midline and without lesion or injury. The mucosa appeared normal and there were no signs of tracheomalacia. The ronna was sharp. All bronchial subsegments were visualized within each lobe and showed normal appearing tissue with no lesions, injury or nodules. A bronchoalveolar lavage was performed in the right upper lobe. A total of 120cc of saline was administered with a return of 20cc. The fluid was slightly cloudy in appearance with visible debris. The bronchoscope was then removed and the case terminated. The patient was taken to PACU in stable condition. Samples collected:RUL BAL, bronchial washings Testing ordered:BAL cell diff, bacterial, fungal, AFB cultures, viral panel, cytopathology Complications:None Jolly Venegas MD Pulmonary & Critical Care Medicine
--- NOTE | 2022-07-15 09:23 | W.ANESPOSTOP ---
Postoperative Evaluation Date, Time and Location Date Performed: 07/15/22 Time Performed: 09:00 Patient Location: PACU Vital Signs Most Recent Imported Vital Signs: Most Recent Vital Signs Temp Pulse Resp BP Pulse Ox 36.7 C 73 25 H 100/56 L 92 07/15/22 08:55 07/15/22 08:55 07/15/22 08:55 07/15/22 08:55 07/15/22 08:55 Pain Score Most Recent Pain Score: Most Recent Pain Score Pain Level 0 07/15/22 08:55 Assessment Mental Status: Awake (Alert & Oriented to Patient Baseline) Airway and Respiratory Function: Patent airway with normal (patient baseline) respiratory exam Cardiovascular Function: Hemodynamically Stable Hydration Status: Adequately Hydrated Nausea & Vomiting: No Nausea or Vomiting Pain: Pt. Denies Any Pain Peripheral Nerve Block: Patient did not receive a nerve block
[2022-07-16 02:25] LABS: Adenovirus DNA Result Negative (Negative); Metapneumovirus RNA Result Negative (Negative); Parainfluenza Type1 RNA Result Negative (Negative); Parainfluenza Type2 RNA Result Negative (Negative); Parainfluenza Type3 RNA Result Negative (Negative); Parainfluenza Type4 RNA Result Negative (Negative); Rhinovirus RNA Result Negative (Negative)
[2022-07-16 12:41] LABS: Eosinophils Fluid Relative 2 %; Lymphocytes Fluid Relative 12 %; Mono/Macrophage Fluid Relative 55 %; Neutrophils Fluid Relative 31 %
[2022-07-17 08:51] LABS: Gram Smear Result Neutrophils Present
[2022-08-12 09:06] LABS: Fungus Smear No Fungi Seen
[2022-08-12 09:07] LABS: Fungus Smear No Fungi Seen
== END 2022-07-15 10:20 | disposition home or self-care (01) ==
PROVIDERS: PCP Physician Assistant Medical; Visit Provider Student in an Organized Health Care Education/Training Program
PROC: 0BJ08ZZ Inspection of Tracheobronchial Tree, Via Natural or Artificial Opening Endoscopic (ICD-10-PCS; CPT 31622; principal; 2022-07-15 07:30)
DX: R05.3 Chronic cough (principal); I10 Essential (primary) hypertension; K21.9 Gastro-esophageal reflux disease without esophagitis; Z79.899 Other long term (current) drug therapy; R84.6 Abnormal cytological findings in specimens from respiratory organs and thorax
CPT/HCPCS: 31624; 80162; 87070; 87102; 87116; 87205; 87206; 87632; 88104; J2250; J2405